=== PATIENT | female | born 1995 | race Caucasian/White ===

== ENCOUNTER 2016-09-24 14:06 | Emergency (ER) | payer OTHER ==
[~2016-09-24] VITALS: Ht 170.2 cm; Wt 60.7 kg
[2016-09-24 14:10] VITALS: TEMP 37.1; Ht 170.2 cm; Wt 60.7 kg
[2016-09-24 15:18] VITALS: O2SAT 99
[2016-09-24] MEDS ORDERED: IBUPROFEN 200 MG TAB PO STA (15:34)
[2016-09-24] MEDS ORDERED: TRAMADOL HCL 50 MG TAB PO STA (15:34)
[2016-09-24] MEDS ORDERED: ACETAMINOPHEN 500 MG TAB PO STA (15:34)
[2016-09-24] MEDS ORDERED: SODIUM CHLORIDE 0.9% 1000ML 1,000 ML IV STA ×2 (15:36→15:38)
[2016-09-24 15:48] LABS: BASO % 0.3 %; BASO ABS # 0.02 K/uL (0-0.2); COMPLETE YES; EOS % 0.3 %; HEMATOCRIT 42.4 % (37-47); IG% 0.2 %; LYMPH % 24.3 %; LYMPH ABS # 1.46 K/uL (1.2-3.4); MEAN CELL VOLUME 91.8 fL (80-100); MEAN CORPUSCULAR HEMOGLOBIN 31.8 pg (25-34); MEAN CORPUSCULAR HGB CONC 34.7 g/dl (32-36); MEAN PLATELET VOLUME 9.7 fL (7.4-10.4); MONO % 6.5 %; NEUT % 68.4 %; PLATELET COUNT 276 K/uL (130-400); RED BLOOD COUNT 4.62 M/uL (4.2-5.4)
--- NOTE | 2016-09-24 15:54 | EMERGENCY ROOM VISIT NOTE ---
History Report prepared by Niko: Carmela Ray Under the Supervision of: Dr. Cam Arrington M.D. First contact with patient: 15:07 Chief Complaint: CHEST PAIN Stated Complaint: CHEST/NECK PAIN,HEADACHE,LIGHTHEADED Nursing Triage Summary: chest pain started last evening and has continued and gotten more consistant.states it radiated to the left arm as well. she was going to see her Pcp at home an hour away but decided not to drive that far since it was getting worse. no cold symptoms no nausea noted. History of Present Illness The patient is a 20 year old female who presents to the Emergency Room with complaints of persistent chest pain which started last night around 1829. The patient describes the pain as a "squeezing" pain and rates her discomfort as a 7 out of 10 in severity. She reports her chest pain worsened around 1300 today, prompting her visit to the ED. She also reports experiencing headaches, neck pain, and left arm pain since two days ago. The patient mentions that she has a history of migraines for which she sees a neurologist. She also reports that she had a concussion in 2012. She states that she took acetaminophen which has provided no major relief. The patient denies any shortness of breath. Source of History: patient Onset: last night around 1829 Position: chest Symptom Intensity: 7/10 Quality: other ("squeezing") Timing: other (persistent) Modifying Factors (Relieving): tylenol (Acetaminophen provided no major relief) Associated Symptoms: + headache, + neck pain, No SOB Note: Associated symptoms: left arm pain Review of Systems See HPI for pertinent positives & negatives. A total of 10 systems reviewed and were otherwise negative. Past Medical & Surgical Medical Problems: (1) Concussion (2) Migraine Social History Smoking Status: Never Smoker Alcohol Use: none Drug Use: none Marital Status: single Housing Status: lives with roommate Occupation Status: [employer] student Current/Historical Medications Scheduled Azithromycin (Zithromax Z-Robert), 1 PKT PO UD Doxepin (Sinequan), 30 MG PO HS Allergies Coded Allergies: No Known Allergies (Unverified , 09/24/16) Physical Exam Vital Signs Date Time Temp Pulse Resp B/P Pulse Ox O2 Delivery O2 Flow Rate FiO2 09/24/16 17:31 68 20 122/70 98 09/24/16 16:45 80 18 114/70 99 Room Air 09/24/16 16:45 91 18 110/72 99 Room Air 80 114/70 104 120/77 09/24/16 15:23 84 09/24/16 15:20 Room Air 09/24/16 15:18 99 Room Air 09/24/16 15:18 89 20 118/85 99 Room Air 09/24/16 14:10 37.1 104 18 130/78 98 Room Air Physical Exam CONSTITUTIONAL: The patient appears to be mildly anxious, in no acute distress HEENT: No icterus, moist mucous membranes NECK: No meningismus, trachea is midline. CARDIOVASCULAR: Regular rate, normal perfusion RESPIRATORY: Unlabored breathing. Clear to auscultation. GASTROINTESTINAL: Non-tender GENITOURINARY: No flank tenderness MUSCULOSKELETAL: Full range of motion NEUROLOGIC: No acute gross focal deficits. PSYCHIATRIC: Normal affect SKIN: Normal for ethnicity. Medical Decision & Procedures ER Provider Diagnostic Interpretation: Radiology results as stated below per my review and radiologist interpretation. CHEST 2 VIEWS ROUTINE IMPRESSION: Small parenchymal infiltrate left base. Electronically signed by: Harshad Perdomo M.D. 09/24/2016 4:57 PM Laboratory Results 09/24/16 15:39 Red Blood Count 4.62, Mean Corpuscular Volume 91.8, Mean Corpuscular Hemoglobin 31.8, Mean Corpuscular Hemoglobin Concent 34.7, Mean Platelet Volume 9.7, Neutrophils (%) (Auto) 68.4, Lymphocytes (%) (Auto) 24.3, Monocytes (%) (Auto) 6.5, Eosinophils (%) (Auto) 0.3, Basophils (%) (Auto) 0.3, Neutrophils # (Auto) 4.10, Lymphocytes # (Auto) 1.46, Monocytes # (Auto) 0.39, Eosinophils # (Auto) 0.02, Basophils # (Auto) 0.02 09/24/16 15:39 Test 09/24/16 15:20 09/24/16 15:30 09/24/16 15:39 Urine Color YELLOW Urine Appearance CLEAR (CLEAR) Urine pH 5.0 (4.5-7.5) Urine Specific [place] 1.004 (1.000-1.030) Urine Protein NEG (NEG) Urine Glucose (UA) NEG (NEG) Urine Ketones 1+ (NEG) Urine Occult Blood 1+ (NEG) Urine Nitrite NEG (NEG) Urine Bilirubin NEG (NEG) Urine Urobilinogen NEG (NEG) Urine Leukocyte Esterase NEG (NEG) Urine WBC (Auto) 1-5 /hpf (0-5) Urine RBC (Auto) 0-4 /hpf (0-4) Urine Hyaline Casts (Auto) 0 /lpf (0-5) Urine Epithelial Cells (Auto) 10-20 /lpf (0-5) Urine Bacteria (Auto) NEG (NEG) White Blood Count 6.00 K/uL (4.8-10.8) Red Blood Count 4.62 M/uL (4.2-5.4) Hemoglobin 14.7 g/dL (12.0-16.0) Hematocrit 42.4 % (37-47) Mean Corpuscular Volume 91.8 fL (80-100) Mean Corpuscular Hemoglobin 31.8 pg (25-34) Mean Corpuscular Hemoglobin Concent 34.7 g/dl (32-36) Platelet Count 276 K/uL (130-400) Mean Platelet Volume 9.7 fL (7.4-10.4) Neutrophils (%) (Auto) 68.4 % Lymphocytes (%) (Auto) 24.3 % Monocytes (%) (Auto) 6.5 % Eosinophils (%) (Auto) 0.3 % Basophils (%) (Auto) 0.3 % Neutrophils # (Auto) 4.10 K/uL (1.4-6.5) Lymphocytes # (Auto) 1.46 K/uL (1.2-3.4) Monocytes # (Auto) 0.39 K/uL (0.11-0.59) Eosinophils # (Auto) 0.02 K/uL (0-0.5) Basophils # (Auto) 0.02 K/uL (0-0.2) RDW Standard Deviation 41.8 fL (36.4-46.3) RDW Coefficient of Variation 12.4 % (11.5-14.5) Immature Granulocyte % (Auto) 0.2 % Immature Granulocyte # (Auto) 0.01 K/uL (0.00-0.02) D-Dimer < 190 ug/L FEU (0-500) Anion Gap 11.0 mmol/L (3-11) Est Creatinine Clear Calc Drug Dose 103.2 ml/min Estimated GFR () 116.8 Estimated GFR (Non- 100.8 BUN/Creatinine Ratio 11.0 (10-20) Calcium Level 9.7 mg/dl (8.5-10.1) Troponin I < 0.015 ng/ml (0-0.045) Labs reviewed by ED physician. Medications Administered Medications (Trade) Dose Ordered Sig/Vahid Route Start Time Stop Time Status Last Admin Dose Admin Acetaminophen (Tylenol Tab) 1,000 mg NOW STAT PO 09/24/16 15:34 09/24/16 15:35 DC 09/24/16 16:36 1,000 MG Ibuprofen 800 mg 800 mg NOW STAT PO 09/24/16 15:34 09/24/16 15:35 DC 09/24/16 16:36 800 MG Sodium Chloride 1,000 ml @ 0 mls/hr Q0M STAT IV 09/24/16 15:36 09/24/16 15:37 DC 09/24/16 16:37 0 MLS/HR Sodium Chloride (Nss 1000ml) 1,000 ml @ 0 mls/hr Q0M STAT IV 09/24/16 15:38 09/24/16 15:39 DC 09/24/16 16:37 0 MLS/HR ECG Indication: chest pain Rate (beats per minute): 89 Rhythm: normal sinus (normal sinus rhythm) Findings: other (normal axis, nonspecific ST findings) ED Course 1523: Past medical records reviewed. The patient was evaluated in room B4A. A complete history and physical examination was performed. 1534: Advil 800 mg PO, Tylenol 1000 mg PO. 1536: NSS 1000 ml @ 0 mls/hr IV. 1538: NSS 1000 ml @ 0 mls/hr IV. 1720: I reevaluated the patient. She is feeling better. I discussed her results and discharge instructions. She verbalized complete agreement and understanding. Medical Decision 20 y/o presented to the ED with several concerns, including vague retrosternal chest pain and back pain with radiation to left arm as well as to head and neck. Last took Tylenol 8am (~ 6 hours ago). Patient spoke with her parents and presented for screening evaluation. At least two prior intracranial imaging evaluations for concussion reportedly negative. Patient appears anxious but feels well, otherwise. Tylenol 1000mg, Toradol 30mg IV and Tramadol 50mg PO ordered. Chest x-ray concerning for possible infiltrate. Patient comfortable on reexamination at 5:15 PM. Rx Z-Robert. Advised to take Tylenol Motrin every 6 hours as needed for pain coming several days for potential improvement. She understands to return for any worsening or worrisome symptoms. Impression Primary Impression: Non-cardiac chest pain Scribe Attestation The scribe's documentation has been prepared under my direction and personally reviewed by me in its entirety. I confirm that the note above accurately reflects all work, treatment, procedures, and medical decision making performed by me. Departure Information Dispostion Home / Self-Care Prescriptions Azithromycin (ZITHROMAX Z-ROBERT) 250 Mg Tab 1 PKT PO UD for 5 Days, #6 TAB Prov: Cam Arrington MD 09/24/16 Referrals [facility] (PCP) Forms HOME CARE DOCUMENTATION FORM, IMPORTANT VISIT INFORMATION Patient Instructions Chest Pain - [facility], [facility] Additional Instructions Possible infiltrate on chest x-ray. Take Tylenol 650mg and Motrin 600mg every 6 hours for pain and pick-up your Z-robert.
[2016-09-24] MEDS ORDERED: DOXE10CA PO (16:29)
[2016-09-24 16:31] LABS: BLOOD UREA NITROGEN 9 mg/dl (7-18); CALCIUM 9.7 mg/dl (8.5-10.1); CARBON DIOXIDE 25 mmol/L (21-32); CHLORIDE 106 mmol/L (98-107); CREATININE 0.84 mg/dl (0.60-1.20); GLUCOSE 78 mg/dl (70-99); POTASSIUM 3.5 mmol/L (3.5-5.1); SODIUM 142 mmol/L (136-145)
[2016-09-24 16:36] LABS: URINE APPEARANCE CLEAR (CLEAR); URINE BILIRUBIN NEG (NEG); URINE COLOR YELLOW; URINE NITRITE NEG (NEG); URINE SPECIFIC GRAVITY 1.004 (1.000-1.030); UROBILINOGEN NEG (NEG); ZZUR CULT IF INDIC CLEAN CATCH NO
[2016-09-24 16:38] LABS: MANUAL MICROSCOPIC REQUIRED? NO; REVIEW REQ? NO
--- NOTE | 2016-09-24 16:58 | DIAGNOSTIC IMAGING REPORT ---
CHEST 2 VIEWS ROUTINE CLINICAL HISTORY: cp dyspnea COMPARISON STUDY: No previous studies for comparison. FINDINGS: Small parenchymal infiltrate left base. Lungs otherwise appear clear. No evidence for cardiac enlargement. IMPRESSION: Small parenchymal infiltrate left base. Electronically signed by: Harshad Perdomo M.D. 09/24/2016 4:57 PM Dictated Date/Time: 09/24/2016 4:56 PM
[2016-09-24] MEDS ORDERED: AZITTAB PO (17:17)
[2016-09-24 17:31] VITALS: BP 122/70; PULSE 68; O2SAT 98
== END 2016-09-24 17:32 | disposition home or self-care (01) ==
LOC: C.EDB 14:07
DX: R07.9 Chest pain, unspecified (principal); Z87.820 Personal history of traumatic brain injury